=== PATIENT | male | born 1965 | race Caucasian/White ===

== ENCOUNTER 2017-01-09 12:48 | Emergency (ER) | payer MEDICARE ==
[~2017-01-09] VITALS: Ht 177.8 cm; Wt 79.1 kg
[2017-01-09] MEDS ORDERED: ONDA4 PO (13:12)
[2017-01-09] MEDS ORDERED: LUBI24CA2 PO (13:12)
[2017-01-09] MEDS ORDERED: FENTANYL TRANSDERMAL TD (13:12)
[2017-01-09] MEDS ORDERED: HYDR-309 PO (13:12)
[2017-01-09] MEDS ORDERED: CYCL10 PO (13:12)
[2017-01-09] MEDS ORDERED: DOCU100C19 PO (13:12)
[2017-01-09] MEDS ORDERED: OXYC10 PO (13:12)
[2017-01-09] MEDS ORDERED: FENT25PAT TD (14:09)
[2017-01-09] MEDS ORDERED: SODIUM CHLORIDE 0.9% 1,000 ML IV ONE ×2 (14:15→16:00)
[2017-01-09] MEDS ORDERED: ONDANSETRON HCL 8 MG in DEXTROSE 5%-WATER 50 ML IV ONE (14:15)
[2017-01-09 14:26] LABS: BASOPHILS % (AUTO) 0.1 % (0.0-2.0); EOSINOPHILS # (AUTO) 0.04 K/uL (0.00-0.70); EOSINOPHILS % (AUTO) 0.53 % (1.0-6.0); HEMATOCRIT 40.9 % (41-53); HEMOGLOBIN 13.3 g/dL (13.5-17.5); LYMPHOCYTES # (AUTO) 0.5 K/uL (1.0-4.8); LYMPHOCYTES % (AUTO) 7.5 % (22.0-44.0); MEAN CORPUSCULAR HEMOGLOBIN 25.8 pg (26.0-34.0); MEAN CORPUSCULAR HGB CONC 32.6 G/dL (31.0-37.0); MEAN CORPUSCULAR VOLUME 79 fL (80-100); MONOCYTES # (AUTO) 0.6 K/uL (0.1-1.0); MONOCYTES % (AUTO) 8.8 % (2.0-9.0); NEUTROPHILS % (AUTO) 83.1 % (40.0-70.0); PLATELET COUNT (AUTO) 288 K/uL (150-450); RED BLOOD CELL COUNT(AUTO) 5.15 MIL/uL (4.50-5.90); RED CELL DISTRIBUTION WIDTH 19.7 % (11.5-14.5); WHITE BLOOD COUNT (AUTO) 7.3 K/uL (4.5-11.0)
[2017-01-09 14:41] LABS: ALANINE AMINOTRANSFERASE 56 U/L (12-78); ALBUMIN 3.7 g/dL (3.4-5.0); ANION GAP 5 mmol/L (8-16); ASPARTATE AMINOTRANSFERASE 47 U/L (15-37); BILIRUBIN,TOTAL 1.2 mg/dL (0.1-1.0); CALCIUM, TOTAL 9.4 mg/dL (8.8-10.5); CHLORIDE 83 mmol/L (98-107); CREATINE KINASE, TOTAL 42 U/L (39-308); CREATININE 1.22 mg/dL (0.60-1.30); GLOMERULAR FILTR. RATE CALC > 60 mL/min (>60); SODIUM SERUM 132 mmol/L (136-145); TOTAL PROTEIN, SERUM 8.2 g/dL (6.4-8.2); UREA NITROGEN, BLOOD 22 mg/dL (7-18)
[2017-01-09 14:48] LABS: RBC MORPHOLOGY COMMENT ABNORMAL RBC MORPH
[2017-01-09 14:52] LABS: CARBON DIOXIDE 44 mmol/L (22-29); POTASSIUM 2.7 mmol/L (3.5-5.1)
[2017-01-09 15:48] LABS: LACTIC ACID 2.9 mmol/L (0.4-2.0)
[2017-01-09] MEDS ORDERED: POTASSIUM CHLORIDE 10% 40 MEQ/30 ML LIQUID UDCUP PO ONE (16:00)
[2017-01-09 16:19] LABS: REFLEX LACTIC ACID? YES YES
[2017-01-09 17:29] VITALS: BP 109/94
== END 2017-01-09 18:05 | disposition home or self-care (01) ==
LOC: EMS 12:52
DX: E86.0 Dehydration (principal); E87.6 Hypokalemia; C18.9 Malignant neoplasm of colon, unspecified; C79.89 Secondary malignant neoplasm of other specified sites
CPT/HCPCS: 36415; 80053; 82550; 83605; 83690; 84484; 85025; 96365; 96366; 99285; J2405; J7030; J7060